=== PATIENT | male | born 1980 | race Caucasian/White ===

== ENCOUNTER 2023-03-31 22:59 | Emergency (ER) | payer SELFPAY ==
[2023-04-01] MEDS ORDERED: LIDOCAINE 1% MPF 30 ML VIAL ONE (00:16)
[2023-04-01] MEDS ORDERED: TDAP (DIPHTH,PERTUSS(ACELL),TET VAC) 0.5 ML VIAL IMVAC ONE (00:16)
[2023-04-01 00:19] LABS: Absolute Lymphocytes (CBC) 1.6 K/uL (0.7-4.9); Hematocrit 41.8 % (39.6-49.0); Lymphocytes % 7.4 % (15.3-44.8); MCV 87.5 fL (80-100); MPV 9.4 fL (7.6-11.3); Platelets 252 thou/uL (152-406); RBC Red Blood Cell Count 4.78 M/uL (4.33-5.43)
[2023-04-01 00:27] LABS: Potassium 2.9 mEq/L (3.5-5.1)
[2023-04-01 01:29] LABS: Blood Morphology Comment NOT SEEN (NOT SEEN); Platelet Estimate ADEQ
[2023-04-01] MEDS ORDERED: KETOROLAC 30 MG/ML INJ ONE (02:03)
[2023-04-01] MEDS ORDERED: METOCLOPRAMIDE 10 MG/2mL INJ ONE (02:03)
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
[2023-04-01] MEDS ORDERED: CYCLOBENZAPRINE 10 MG TAB ONE (03:01)
[2023-04-01] MEDS ORDERED: TRAMADOL HCL 50 MG TAB ONE (03:02)
[2023-04-01] MEDS ORDERED: PROMETHAZINE 25 MG TABLET ONE (03:02)
[2023-04-01 03:37] VITALS: TEMP 98.2
[2023-04-01 03:43] VITALS: BP 132/82; O2SAT 98
--- NOTE | 2023-04-01 10:44 | RAD REPORT ---
EXAM DESCRIPTION: RAD - Ankle Right 3 View - 03/31/2023 11:34 pm CLINICAL HISTORY: 42 years, Male, right ankle injury TECHNIQUE: 3 views right ankle COMPARISON: None. FINDINGS: Acute traumatic transverse fracture through the medial malleolus. No significant displacem ent. Ankle mortise demonstrates no widening. Distal fibula intact without acute fracture. Hindfoot in tact without acute fracture. IMPRESSION: Acute traumatic nondisplaced fracture medial malleolus Electronically signed by: Zeke Dia MD 03/31/2023 11:44 PM CDT Due to temporary technical issues with the PACS/Fluency reporting system, reports are being signed by the in house radiologist without review as a courtesy to ensure prompt reporting. The interpreting r adiologist is fully responsible for the content of the report.
--- NOTE | 2023-04-01 12:02 | RAD REPORT ---
EXAM DESCRIPTION: CT - Head C Spine Cap Wo Con - 04/01/2023 6:53 am CLINICAL HISTORY: Acute facial and neck injury COMPARISON: None available TECHNIQUE: Axial CT of the head obtained from the skull apex to the skull base without contrast. Axi al CT images of the cervical spine obtained from the skull base through the thoracic inlet. Sagittal and coronal reformatted images available. CT of the chest, abdomen and pelvis performed without IV co ntrast. Suboptimal evaluation of the soft tissues, solid organs, and vasculature due to lack of IV co ntrast. This exam was performed according to our departmental dose-optimization program, which includ es automated exposure control, adjustment of the mA and/or kV according to patient size and/or use of iterative reconstruction technique. FINDINGS: CT head: No acute intracranial hemorrhage identified. No mass, mass effect, shift of the midline, abnormal ext ra-axial fluid collection or CT evidence of acute ischemic change identified. The ventricular system is unremarkable. No acute abnormalities of the supratentorial white matter, basal ganglia, cerebell um, or brainstem. The visualized paranasal sinuses and the mastoids are clear. No skull fracture identified. Visual ized orbits and globes are unremarkable. Multifocal contusion and hematoma in the right scalp soft ti ssues. Cervical CT: Straightening of the cervical lordosis may be secondary to patient positioning. The atlantoaxial, a tlantodental, and occipitoatlantal intervals are preserved. No fracture identified. Vertebral body height preserved. Prevertebral soft tissues are unremarkable. Intervertebral disc height relatively well-preserved. Mild multilevel endplate spondylosis, uncoverte bral spurring, and facet arthropathy. Visualized skull base is intact. No fracture of the visualized facial bones. Visualized mastoid air c ells and paranasal sinuses are well aerated. Visualized thyroid is unremarkable. No cervical lymphadenopathy. No pneumothorax in the visualized lung apices. Chest: Thyroid: No abnormalities of the visualized thyroid. Great Vessels: Great vessels have normal anatomic configuration. Thoracic Aorta: No abnormalities of the thoracic aorta identified. Pulmonary arteries: The main pulmonary artery is not dilated. Heart: No cardiomegaly, significant pericardial effusion, or coronary artery atherosclerosis Lymph Nodes: No enlarged mediastinal lymph nodes identified. Esophagus: No abnormalities of the esophagus identified Other: No additional findings. Lungs: No airspace opacities identified. Pleura: No pleural effusion or pneumothorax. Trachea/Airways: No abnormalities of the visualized trachea or airways. Abdomen: Liver: Hepatomegaly with decreased density. Gallbladder: No calcified gallstones. Spleen, Pancreas, and Adrenal Glands: The spleen, pancreas, and adrenal glands are unremarkable. Kidneys: No hydronephrosis or obstructing ureteral calculus. Vasculature: The aorta and IVC have normal caliber and position. Stomach: The stomach and duodenum have normal course. Other: No free intraperitoneal air. No free fluid or lymphadenopathy. Pelvis: Bladder: Urinary bladder is unremarkable. Bowel: No dilated loops of large or small bowel. Appendix: Normal appendix. Pelvis: Small fat-containing right inguinal hernia. Bones: Multilevel endplate spondylosis. IMPRESSION: 1. No acute intracranial abnormality. 2. No acute fracture or subluxation of the cervical spine. 3. No acute traumatic, inflammatory or obstructive process identified in the chest, abdomen, or pel vis. 4. Hepatomegaly and hepatic steatosis. Electronically signed by: Alexander Shahid 04/01/2023 12:27 AM CDT Due to temporary technical issues with the PACS/Fluency reporting system, reports are being signed by the in house radiologist without review as a courtesy to ensure prompt reporting. The interpreting r adiologist is fully responsible for the content of the report.
== END 2023-04-01 03:21 | disposition home or self-care (01) ==
LOC: ER 22:59
PROC: 0HQ1XZZ Repair Face Skin, External Approach (ICD-10-PCS; principal; 2023-04-01)
DX: S01.111A Laceration without foreign body of right eyelid and periocular area, initial encounter (principal); S82.51XA Displaced fracture of medial malleolus of right tibia, initial encounter for closed fracture; S50.312A Abrasion of left elbow, initial encounter; S50.311A Abrasion of right elbow, initial encounter; V20.49XA Other motorcycle driver injured in collision with pedestrian or animal in traffic accident, initial encounter; Z23 Encounter for immunization; F17.210 Nicotine dependence, cigarettes, uncomplicated
CPT/HCPCS: 36415; 70450; 71250; 72125; 80048; 85025; 86850; 86900; 86901; 90471; 96374; 96375; 99284; J2001; J2765; Q0169; Q9967